=== PATIENT | female | born 1935 | race Caucasian/White ===

== ENCOUNTER → 2023-10-12 14:52 | Outpatient (REF) | payer OTHER, SELFPAY | LOC: RAD 14:52 | PROVIDERS: ATTENDING PHYSICIAN Surgery Vascular Surgery; FAMILY PHYSICIAN Family Medicine | DX: I65.23 Occlusion and stenosis of bilateral carotid arteries (principal) | CPT/HCPCS: 93880 ==

== ENCOUNTER → 2024-05-02 13:43 | Outpatient (REF) | payer OTHER, SELFPAY | LOC: RAD 13:43 | PROVIDERS: ATTENDING PHYSICIAN Surgery Vascular Surgery; FAMILY PHYSICIAN Family Medicine | DX: I65.23 Occlusion and stenosis of bilateral carotid arteries (principal) | CPT/HCPCS: 93880 ==

== ENCOUNTER 2024-11-19 17:07 | Emergency (ER) | payer OTHER, SELFPAY ==
[2024-11-19 17:15] VITALS: BP 125/63
[2024-11-19 17:30] LABS: % Basophils 0.6 % (0-2); % Eosinophils 1.4 % (0-6); % Immature Granulocytes 0.4 % (0-0.5); % Lymphocytes 22.2 % (20.5-51.1); % Monocytes 10.8 % (1.7-9.3); % Neutrophils 64.6 % (42.2-75.2); Absolute Eosinophils 0.1 10^3/uL (0-0.7); Absolute Lymphocytes 1.2 10^3/uL (1.2-3.4); Absolute Monocytes 0.6 10^3/uL (0.1-0.6); Absolute Neutrophils 3.4 10^3/uL (1.4-6.5); Hematocrit 34.1 % (37.0-47.0); Hemoglobin 11.9 g/dL (12.0-16.0); Mean Corp Hgb Conc. 34.9 g/dL (33.0-37.0); Mean Corpuscular Hgb 34.2 pg (27.0-31.0); Nucleated Red Blood Cells % 0 %; Platelet Count 411 10^3/uL (130-400); Red Blood Cell Count 3.48 10^6/uL (4.20-5.40); Red Cell Dist. Width 12.7 % (11.5-14.5); White Blood Cell Count 5.2 10^3/uL (4.8-10.8)
[2024-11-19 17:52] LABS: ALT (SGPT) 23 U/L (0-35); AST (SGOT) 27 U/L (14-36); Albumin 3.8 g/dl (3.5-5.0); Alkaline Phosphatase 89 U/L (38-126); Blood Urea Nitrogen 18 mg/dl (7-17); Calcium 9.1 mg/dl (8.4-10.2); Carbon Dioxide 22 mmol/L (22-30); Chloride 104 mmol/L (98-107); Glucose 245 mg/dl (70-99); Potassium 3.7 mmol/L (3.5-5.1); Sodium 136 mmol/L (135-145); Total Bilirubin 0.7 mg/dl (0.2-1.3); eGFR > 60.00
[2024-11-19 18:08] LABS: COVID-19 Antigen Negative (Negative)
[2024-11-19 19:52] VITALS: BP 165/79
[2024-11-19 20:00] VITALS: BP 157/70
[2024-11-19 20:22] VITALS: BMI 23.1
--- NOTE | 2024-11-19 20:43 | ED.GENMED ---
History of Present Illness
General
Chief Complaint: Fever
Source: patient and family
Exam Limitations: none
Time Seen by Provider: 11/19/24 20:04
Nursing documentation reviewed up to this point in time: agreed with
History of Present Illness
History of Present Illness:
88-year-old female past medical history of previous stroke hypertension hyperlipidemia, diabetes presenting to the emergency department today with concerns of low-grade fever over the past 2 weeks also has had cough and some runny nose. Has been
feeling weak and tired. Ongoing today which prompted come to the ER. Denies any chest pain shortness of breath or any focal symptoms. Does get up some mild ongoing nasal drip.
Past History
Past History
ED Past Medical History: None; Negative HTN, Hypercholesterolemia, IDDM, NIDDM or FL
ED Past Surgical History: None; Negative Cardiac or Orthopedic
Social History
Tobacco: Smoker
Alcohol: Occasional
Drug: None
Living: with family
Employment: Retired
Family History
Family History: Negative Diabetes, Hypertension, Early CAD, Asthma or Cancer
Review of Systems
Review of Systems
Allergies reviewed?: Yes
All Other Systems: ROS reviewed and negative except as documented in HPI and ROS
Phy Exam
Physical Exam
Physical Exam:
GENERAL: Alert , in no apparent distress
EYE: pupils equal and reactive
NECK: Supple, no significant adenopathy.
ENT: o/p clr, mmm.
CARDIAC: Regular rate and rhythm .
LUNGS: Clear breath sounds bilaterally, no acute respiratory distress, no wheezes/rales/rhonchi
ABDOMEN: Soft, without focal tenderness, no r/g, no cvat
NEUROLOGICAL: Alert and oriented, no focal neuro deficits
SKIN: Warm and dry, skin intact.
MUSCULOSKELETAL: No edema, well perfused.
PSYCH: Normal and appropriate interaction.
Course
Orders/Labs/Results
Orders:
Orders
11/19/24 17:22
COVID-19 Antigen Urgent
Source: Nasal Swab
Complete Blood Count/With Diff Urgent
Comprehensive Metabolic Panel Urgent
11/19/24 20:04
Chest [CR Chest - 2 Views ] Urgent
Comment:
Reason For Exam: cough fever
11/19/24 20:10
EKG [Electrocardiogram (*1)] Urgent
Reason for Study: Fatigue / Weakness
11/19/24 20:11
EKG- Treatment ONCE
11/19/24 20:26
Influenza A+B Rapid Molecular Urgent
KEVIN Source: Nasal Swab
Specimen Description:
11/19/24 20:38
Urinalysis Reflex To Culture Urgent
Date Specimen was Collected: 11/19/24
Time Specimen was Collected: 20:34
Urine Microscopic Reflex Cult Urgent
Urine Culture Urgent
KEVIN Source: U
Specimen Description:
Date Specimen was Collected: 11/19/24
Time Specimen was Collected: 20:34
11/19/24 20:42
0.9% Sodium Chloride 1000 ml [Nss] 1,000 ml IV BOLUS
11/19/24 21:34
CefTRIAXone [Rocephin] 1,000 mg IV NOW STA
Abnormal Lab Results
11/19/24 11/19/24
17:22 20:38
RBC 3.48 L 10^6/uL
(4.20-5.40)
Hgb 11.9 L g/dL
(12.0-16.0)
Hct 34.1 L %
(37.0-47.0)
MCH 34.2 H pg
(27.0-31.0)
Plt Count 411 H 10^3/uL
(130-400)
Monocytes % 10.8 H %
(1.7-9.3)
BUN 18 H mg/dl
(7-17)
Glucose 245 H mg/dl
(70-99)
Ur Occult Blood Reflex 2+ A
(Negative)
Urine Urobilinogen 2+ A
(Neg - 1+)
Leukocyte Esterase Rfl 3+ A
(Negative)
Urine RBC 3-6 A /HPF
(0-2)
Urine WBC (Reflex) 40-50 A /HPF
(0-5)
Urine Bacteria (Reflex) Many A
(Negative)
Urine Albumin (Reflex) 2+ A
(Neg - Trace)
11/19/24 17:22
11/19/24 17:22
Vital Signs
Initial and Last Documented VS:
Initial Vital Signs
Temp Pulse Resp BP Pulse Ox
98.6 F 100 16 125/63 96
11/19/24 17:15 11/19/24 17:15 11/19/24 17:15 11/19/24 17:15 11/19/24 17:15
Last Documented Vital Signs
Temp Pulse Resp BP Pulse Ox
98.4 F 100 16 151/80 99
11/19/24 20:29 11/19/24 17:15 11/19/24 17:15 11/19/24 21:00 11/19/24 21:00
MDM/Problems Addressed
MDM/Problems Addressed:
88-year-old female presenting to the emergency department today with concerns of intermittent low-grade temperature over the past 2 weeks has had some cough and runny nose. She feels some generalized weakness and fatigue today. Denies any chest
pain shortness of breath. On arrival heart rate in the high 90s. Other vital signs are normal. Afebrile here. Labs without significant white count slight elevation in BUN to creatinine ratio as well as elevation of her glucose level. She was
given fluids. She did claim to have some improvement of symptoms after receiving fluids. Additionally she was found to have a likely UTI. She was started on antibiotics but otherwise stable for discharge at this time return precautions given.
*Critical Care Note
Total Time (30-74mins, 75-104mins- exclusive of procedures): Not Applicable
ED Attending Note
-
Portions of this chart may have been created with voice recognition software.� Occasional wrong word or��sound alike� substitutions may have occurred due to the inherent limitations of voice recognition software.
Discharge Plan
Departure
Patient Disposition: Home (Routine Discharge)
Date of Disposition: 11/19/24
Time of Disposition: 21:50
Patient with high blood pressure during this ER visit?: No
Condition: Good
Covid-19: Not Applicable
Discharge Problem:
Dehydration, Acute UTI
Instructions: Urinary tract infections in adults
Prescriptions:
New
cefpodoxime 200 mg tablet
200 mg PO BID 5 Days Qty: 10 0RF
No Action
aspirin 81 MG tablet,delayed release (DR/EC)
81 mg PO DAILY
losartan 50 MG tablet
100 mg PO DAILY
glipizide 2.5 MG tablet extended release 24hr
2.5 mg PO DAILY
atorvastatin 20 MG tablet
40 mg PO DAILY
clopidogrel 75 MG tablet
75 mg PO DAILY Qty: 90 3RF
amlodipine 5 MG tablet
5 mg PO DAILY Qty: 90 3RF
hydroxyurea 500 mg Capsule
500 mg PO .4TIMESAWEEK
latanoprost 0.005 % Drops
1 drp OPHTHALMIC (EYE) QPM
Referrals:
Chelsey Winslow MD [Family Provider] -
Activity Restrictions/Additional Instructions:
You came to the emergency department today with concerns of weakness and fatigue. Here you are found to have a UTI and some dehydration. Please make sure you stay hydrated at home and take the prescribed antibiotic twice daily for the next 5 days.
Return for any worsening, new or concerning symptoms.
Interventions
Interventions:
*Risk Screen - Suicide Last Done: 11/19/24 17:17
*General Assessment Last Done: 11/19/24 20:27
*Neglect/Abuse Screening Last Done: 11/19/24 17:17
*ED COVID-19 Vaccine History Last Done: 11/19/24 20:27
ED- Neurological Assessment Last Done: 11/19/24 20:28
ED-Skin Assessment Last Done: 11/19/24 20:28
Discharge Date and Time
Print Language: MARSHALLESE
[2024-11-19 20:50] LABS: Urine Albumin 2+ (Neg - Trace); Urine Bilirubin Negative (Negative); Urine Character Slightly Cloudy (Clear); Urine Color Yellow; Urine Glucose Negative (Negative); Urine Ketone Negative (Negative); Urine Leukocyte 3+ (Negative); Urine Nitrite Negative (Negative); Urine Occult Blood 2+ (Negative); Urine Specific Gravity 1.015 (<1.030); Urine Urobilinogen 2+ (Neg - 1+)
[2024-11-19 21:00] VITALS: BP 151/80
[2024-11-19 21:04] LABS: Urine Squamous Cell 16-20 /LPF (Few); Urine White Cell 40-50 /HPF (0-5)
[2024-11-19 21:05] LABS: Urine Bacteria Many (Negative)
[2024-11-19] MEDS: NSS 1000 IV (21:20)
[2024-11-19 21:46] VITALS: BP 169/82
[2024-11-19] MEDS: ROCEPHIN 1000 MG IV (21:58)
[2024-11-19 22:00] VITALS: BP 164/78
== END 2024-11-20 00:22 | disposition home or self-care (01) ==
LOC: EMR 17:07
PROVIDERS: Physician Assistant; Student in an Organized Health Care Education/Training Program; EMERGENCY PHYSICIAN Emergency Medicine; FAMILY PHYSICIAN Family Medicine
DX: E86.0 Dehydration (principal); N39.0 Urinary tract infection, site not specified; R05.9 Cough, unspecified; I10 Essential (primary) hypertension; E11.9 Type 2 diabetes mellitus without complications; Z86.73 Personal history of transient ischemic attack (TIA), and cerebral infarction without residual deficits; F17.200 Nicotine dependence, unspecified, uncomplicated; Z11.52 Encounter for screening for COVID-19
CPT/HCPCS: 96374; 96361; 99285; 71046; 80053; 81003; 81015; 85025; 87086; 87502; 87811; 93005

== ENCOUNTER → 2024-12-05 15:24 | Outpatient (REF) | payer OTHER, SELFPAY | LOC: RAD 15:24 | PROVIDERS: ATTENDING PHYSICIAN Family Medicine; FAMILY PHYSICIAN Family Medicine | DX: R10.30 Lower abdominal pain, unspecified (principal); R63.4 Abnormal weight loss; R53.1 Weakness; R73.9 Hyperglycemia, unspecified | CPT/HCPCS: 74177; Q9967 ==

== ENCOUNTER → 2025-05-13 15:24 | Outpatient (REF) | payer OTHER, SELFPAY | LOC: RAD 15:24 | PROVIDERS: ATTENDING PHYSICIAN Surgery Vascular Surgery; FAMILY PHYSICIAN Family Medicine | DX: I65.23 Occlusion and stenosis of bilateral carotid arteries (principal) | CPT/HCPCS: 93880 ==